=== PATIENT | female | born 1970 | race African-American/Black ===

== ENCOUNTER 2018-09-30 14:58 | Emergency (ER) | payer OTHER, SELFPAY ==
[2018-09-30 14:59] VITALS: BP 126/80; PULSE 83; RESP 18; TEMP 36.6; O2SAT 99; BMI 25.8
--- NOTE | 2018-09-30 15:24 | ED.RN ---
[facility]
--- NOTE | 2018-09-30 15:27 | ED.VISSUMM ---
- ER Visit Summary Date of Service: 09/30/18 Chief Complaint: Left thumb laceration History of Present Illness: The patient is a 48 F who cut her left thumb on a piece of metal at work just prior to arrival. She is right-hand dominant. She is unsure of her last tetanus update. Physical Examination: Vital signs unremarkable. Patient sitting upright in bed no acute distress. Left upper extremity examination was a 2 cm superficial flap laceration of the pad of the left thumb. Bleeding is well controlled. She has normal cap refill distally and normal sensation. She has full range of motion. Test Results: [] Emergency Department Course and Treatment: Tetanus update is provided. Patient declined sutures. Wound was cleansed and Dermabond was placed. Dressing is applied. She is written work restrictions. Treatment Plan: [] Disposition: Discharge Impression: Left thumb laceration status post Dermabond This note was generated with [employer] dictation software. It may contain incorrect words, spelling, and punctuation that were not noted in review of the chart prior to signing ED Disposition - Plan for ED Patient: Disposition: Home or Assisted Living Instructions: ED Laceration Ext Skin Glue Referrals: [facility] [GROUP OF PHYSICIANS] - 3-5 Days
[2018-09-30] MEDS: Diphth,Pertuss(Acell),Tet Vac 0.5 ML Vial IM (15:31)
[2018-09-30 16:27] VITALS: RESP 18
== END 2018-09-30 16:31 | disposition home or self-care (01) ==
LOC: ED 16:30
PROVIDERS: Emergency Provider Emergency Medicine
DX: S61.012A Laceration without foreign body of left thumb without damage to nail, initial encounter (principal); W26.8XXA Contact with other sharp object(s), not elsewhere classified, initial encounter; Y93.9 Activity, unspecified; Y92.9 Unspecified place or not applicable; Y99.0 Civilian activity done for income or pay
CPT/HCPCS: 12001; 90471; 90715; 99282